=== PATIENT | female | born 1995 | race Two or more races ===

== ENCOUNTER 2021-03-03 15:06 | Observation (INO) | payer MEDICAID ==
[~2021-03-03] VITALS: Ht 165.1 cm; Wt 77.1 kg
[2021-03-03] MEDS ORDERED: PREN-96 PO (15:31)
[2021-03-03] MEDS ORDERED: LACTATED RINGER'S 1,000 ML IV ONE (16:00)
== END 2021-03-03 17:11 | disposition home or self-care (01) ==
LOC: LDRP 15:06
PROVIDERS: ADMIT Obstetrics & Gynecology; ATTEND Obstetrics & Gynecology
DX: O26.893 Other specified pregnancy related conditions, third trimester (principal); R42 Dizziness and giddiness; R53.1 Weakness; Z3A.33 33 weeks gestation of pregnancy
CPT/HCPCS: 59025; 81002; 94760; 96360; G0378; G0379